=== PATIENT | male | born 1955 | race Caucasian/White ===

== ENCOUNTER 2016-08-29 18:17 | Inpatient (IN) | payer OTHER ==
[~2016-08-29] VITALS: Ht 172.7 cm; Wt 88.9 kg
[~2016-08-29 18:17] MED LIST: Ativan PO; BENADRYL50 MG PO; BUSPAR10 MG PO; Benadryl PO; Buspar PO; CLARITIN10 MG PO; Claritin,Alavart PO; FLONASE16 G1 BOTH NARES; FLOVENT 22120 INHALA IH; FLUTICASONE NASAL SP NS; Flovent 220 mcg IH; HYDROMET SYRUP480 ML PO; KEPPRA500 MG PO; NORVASC5 MG PO; Norvasc PO; Phoslo PO; Proventil,Ventolin H IH; RISPERDAL1 MG PO; SIMVASTATIN10 MG PO; TEGRETOL200 MG PO; TEGretol PO; TRAMADOL HCL50 MG PO; TYLENOL REGULA325 MG PO; Tylenol Regular Stre PO; VALIUM10 MG PO; VENTOLIN HFA18 GM IH; Valium PO; Vicodin,Norco 5/325 PO; Zocor PO; risperDAL PO
[2016-08-29] MEDS ORDERED: LISINOPRIL10 MG PO (18:48)
[2016-08-29 19:40] LABS: BASOPHIL COUNT 0.1 K/uL (0-0.1); EOSINOPHIL (%) 2.9 % (0-5); EOSINOPHIL COUNT 0.4 K/uL (0-0.3); HEMATOCRIT 41.4 % (38.0-50.0); IMMATURE GRANULOCYTE (%) 0.4 % (0.0-0.7); IMMATURE GRANULOCYTE COUNT 0.1 K/uL; INSTRUMENT ABS NEUTROPHIL CT 9.9 K/uL; LYMPHOCYTE COUNT 1.7 K/uL (1.0-2.8); MCHC 32.1 G/DL (30.0-36.0); MCV 93.2 FL (86-99); MEAN PLAT.VOLUME 9.4 uM^3 (9.0-12.4); MONOCYTE COUNT 1.5 K/uL (0-0.8); NEUTROPHIL (%) 72.8 % (45-76); NEUTROPHIL COUNT 9.9 K/uL (1.8-6.4); PLATELET COUNT 338 K/uL (156-360); RBC DIS.WIDTH-CV 11.9 % (11.8-14.6); RBC DIS.WIDTH-SD 41.1 % (39-53); RED BLOOD COUNT 4.44 M/uL (4.00-5.50); WHITE BLOOD COUNT 13.6 K/uL (4.1-10.2)
[2016-08-29 19:54] LABS: CHLORIDE 107 mEq/L (99-109); POTASSIUM 4.2 mEq/L (3.7-5.4); SODIUM 138 mEq/L (136-147)
[2016-08-29 19:56] LABS: GLUCOSE 130 mg/dL (70-99)
[2016-08-29 19:57] LABS: ANION GAP 11 MEQ/L (2-14)
[2016-08-29 19:58] LABS: TOTAL BILIRUBIN 0.3 mg/dL (0.0-1.0)
[2016-08-29 19:59] LABS: ALKALINE PHOSPHATASE 113 IU/L (3-129)
[2016-08-29 20:00] LABS: GFR ESTIMATE (CALCULATED) > 59 mL/min/
[2016-08-29 20:01] LABS: UREA NITROGEN (BUN) 17 mg/dL (9-23)
[2016-08-29 20:03] LABS: LIPASE 15 U/L (1.0-51.0)
[2016-08-29 21:00] LABS: ADD MIUA? YES; BILIRUBIN NEGATIVE; BLOOD NEGATIVE; COLOR AMBER ((YELLOW)); GLUCOSE (STRIP) NEGATIVE; KETONES NEGATIVE; LEUKOCYTES NEGATIVE; NITRITE NEGATIVE; PROTEIN (STRIP) 100; SPECIFIC GRAVITY 1.027 (1.000-1.030); UROBILINOGEN 0.2 MG/DL (0.2-1.0)
[2016-08-29 21:11] LABS: BACTERIA NONE SEEN /HPF; EPITHELIAL CELLS NONE SEEN /HPF; HYALINE CASTS 0-5 /LPF; MUCUS 3+ /LPF; UCUL ADDED? NO; WHITE BLOOD CELLS 0-5 /HPF (0-5)
[2016-08-30] MEDS ORDERED: TEGRETOL-XR,CA400 MG PO (01:50)
[2016-08-30] MEDS ORDERED: TYLENOL WITH C1 EACH PO (01:52)
[2016-08-30 04:05] VITALS: BP 121/74
[2016-08-30 07:30] VITALS: BP 105/65
[2016-08-30 11:03] VITALS: BP 127/97
[2016-08-30 15:25] VITALS: BP 146/93
[2016-08-31 02:01] VITALS: BP 129/74
[2016-09-01] MEDS ORDERED: HYDROCODON-ACE1 EAC7 PO (11:27)
== END 2016-09-01 14:43 | disposition home or self-care (01) | DRG 418 ==
LOC: EME 18:17 → 2EAST 08-30 02:34 → EDOF 08-30 02:34 → 2EAST 08-30 02:34
PROVIDERS: Emergency Medicine
PROC: 0FT44ZZ Resection of Gallbladder, Percutaneous Endoscopic Approach (ICD-10-PCS; principal; 2016-08-30)
DX: K81.0 Acute cholecystitis (principal); F72 Severe intellectual disabilities; I10 Essential (primary) hypertension; J45.909 Unspecified asthma, uncomplicated; R45.1 Restlessness and agitation
CPT/HCPCS: 74176; 76705; 80053; 81003; 83690; 85025; 88304; 94640; 94640 76; 99281; 99285; J0131; J0330; J1100; J1170; J1200; J1335; J1630; J2060; J2250; J2405; J2543; J2710; J7030